=== PATIENT | male | born 1970 | race African-American/Black ===

== ENCOUNTER 2016-08-11 03:53 | Emergency (ER) | payer OTHER ==
[~2016-08-11] VITALS: Ht 193 cm; Wt 92.1 kg
[2016-08-11 03:54] VITALS: BP 128/90
[2016-08-11] MEDS ORDERED: LIORESAL 10 MG10 MG PO (04:12)
[2016-08-11] MEDS ORDERED: NAPROXEN SODIU550 MG PO (04:12)
== END 2016-08-11 04:38 | disposition home or self-care (01) ==
LOC: ER 03:53
DX: M25.571 Pain in right ankle and joints of right foot (principal)